=== PATIENT | female | born 1980 | race Asian ===

== ENCOUNTER 2016-02-25 15:59 | Inpatient (IN) | payer SELFPAY ==
[2016-02-25] MEDS ORDERED: ONDANSETRON 4 MG VIAL ONE (17:21)
[2016-02-25] MEDS ORDERED: MORPHINE 4 MG/ML SYR ONE (17:21)
[2016-02-25] MEDS ORDERED: SODIUM CHLORIDE 0.9% 1,000 ML ONE (17:21)
[2016-02-25] MEDS ORDERED: BISACODYL 10 MG SUPP RECTAL PRN (18:00)
[2016-02-25] MEDS ORDERED: MAG HYDROX 30 ML UDC PO PRN (18:00)
[2016-02-25] MEDS ORDERED: PROMETHAZINE 25 MG/ML VIAL IV PRN (18:00)
[2016-02-25] MEDS ORDERED: MORPHINE 4 MG/ML SYR IV PRN (18:00)
[2016-02-25] MEDS ORDERED: BISACODYL EC 5 MG TAB PO PRN (18:00)
[2016-02-25] MEDS ORDERED: SALINE FLUSH 10 ML FLUSH PRN (18:00)
[2016-02-25] MEDS ORDERED: ALU/MAG/SIM 30 ML UDC PO PRN (18:00)
[2016-02-25] MEDS ORDERED: SODIUM CHLORIDE 0.9% 1,000 ML IV SCH (18:00)
[2016-02-25] MEDS: SALINE FLUSH 10 ML FLUSH SCH (20:00)
[2016-02-25 20:54] VITALS: BP_SYST 112; BP_SYST 120; RESP 18; TEMP 101.5
[2016-02-25] MEDS: LEVOFLOXACIN 750 MG/150 ML 150 ML IV SCH (21:11)
[2016-02-25] MEDS: ACETAMINOPHEN 325 MG TAB PO PRN (21:18)
[2016-02-25 21:26] VITALS: Wt 61.8 kg
[2016-02-25] MEDS ORDERED: Flu Vaccine Quadrivalent 60 MCG/0.5 ML IM.VACC ONE (21:50)
[2016-02-25] MEDS: METRONIDAZOLE 500MG/100ML 100 ML IV SCH ×2 (22:01→23:50)
[2016-02-25 23:50] VITALS: BP_SYST 103; RESP 22; TEMP 97.4
[2016-02-25] MEDS: SODIUM CHLOR 0.9% W/KCL 20MEQ 1,000 ML IV SCH (23:50)
[2016-02-26] VITALS (7 sets, daily range): BP systolic 101–121; RESP 18–22; TEMP 98.4–101.2
[2016-02-26] MEDS: SODIUM CHLORIDE 0.9% FLUSH BAG 500 ML IV SCH ×2 (05:10→05:11)
[2016-02-26] MEDS: METRONIDAZOLE 500MG/100ML 100 ML IV SCH ×4 (06:52→23:37)
[2016-02-26] MEDS: LEVOFLOXACIN 750 MG/150 ML 150 ML IV SCH (10:23)
[2016-02-26] MEDS: ENOXAPARIN 40 MG/0.4 ML SYR SUBQ SCH (10:24)
[2016-02-26] MEDS: SALINE FLUSH 10 ML FLUSH SCH ×2 (10:36→21:28)
[2016-02-26] MEDS: PANTOPRAZOLE 40 MG VIAL IV SCH ×2 (11:54→21:27)
[2016-02-26] MEDS: ACETAMINOPHEN 325 MG TAB PO PRN ×2 (11:54→22:22)
[2016-02-26] MEDS: SACCHA BOULARDII 250MG CAP PO SCH ×3 (11:54→21:28)
[2016-02-26] MEDS: SODIUM CHLOR 0.9% W/KCL 20MEQ 1,000 ML IV SCH (11:56)
[2016-02-26] MEDS: MORPHINE 2 MG/ML SYR IV PRN (15:59)
[2016-02-27] VITALS (14 sets, daily range): BP systolic 97–130; RESP 18–28; TEMP 97.7–98.9
[2016-02-27] MEDS: SODIUM CHLOR 0.9% W/KCL 20MEQ 1,000 ML IV SCH ×2 (01:38→16:24)
[2016-02-27] MEDS: SODIUM CHLORIDE 0.9% FLUSH BAG 500 ML IV SCH ×2 (05:06)
[2016-02-27] MEDS: METRONIDAZOLE 500MG/100ML 100 ML IV SCH ×3 (05:20→18:05)
[2016-02-27] MEDS: PANTOPRAZOLE 40 MG VIAL IV SCH ×2 (08:33→20:47)
[2016-02-27] MEDS: LEVOFLOXACIN 750 MG/150 ML 150 ML IV SCH (08:33)
[2016-02-27] MEDS: SALINE FLUSH 10 ML FLUSH SCH ×2 (08:34→20:47)
[2016-02-27] MEDS: SACCHA BOULARDII 250MG CAP PO SCH ×3 (08:34→20:47)
[2016-02-27] MEDS: ENOXAPARIN 40 MG/0.4 ML SYR SUBQ SCH (09:00)
[2016-02-27] MEDS ORDERED: LACT RINGERS 1,000 ML IV SCH (13:00)
[2016-02-27] MEDS: METHYLPRED SOD SUCC 125 MG/2 ML VIAL IV SCH (18:05)
[2016-02-28] MEDS: METRONIDAZOLE 500MG/100ML 100 ML IV SCH ×5 (00:19→23:57)
[2016-02-28] MEDS: SODIUM CHLOR 0.9% W/KCL 20MEQ 1,000 ML IV SCH ×2 (03:03→16:08)
[2016-02-28 03:15] VITALS: BP_SYST 105; RESP 20; TEMP 98.4
[2016-02-28 07:20] VITALS: BP_SYST 101; RESP 20; TEMP 98
[2016-02-28] MEDS: SALINE FLUSH 10 ML FLUSH SCH ×2 (08:18→20:12)
[2016-02-28] MEDS: PANTOPRAZOLE 40 MG VIAL IV SCH ×2 (08:18→20:12)
[2016-02-28] MEDS: SACCHA BOULARDII 250MG CAP PO SCH ×3 (08:18→20:11)
[2016-02-28] MEDS: ENOXAPARIN 40 MG/0.4 ML SYR SUBQ SCH (08:19)
[2016-02-28] MEDS: LEVOFLOXACIN 750 MG/150 ML 150 ML IV SCH (08:19)
[2016-02-28] MEDS: METHYLPRED SOD SUCC 125 MG/2 ML VIAL IV SCH (08:19)
[2016-02-28] MEDS: ONDANSETRON 4 MG VIAL IV PRN ×2 (09:00→22:23)
[2016-02-28 11:28] VITALS: BP_SYST 100; RESP 18; TEMP 98.6
[2016-02-28 16:00] VITALS: BP_SYST 111; RESP 18; TEMP 97.5
[2016-02-28 19:25] VITALS: BP_SYST 98; RESP 18; TEMP 98
[2016-02-28 23:25] VITALS: BP_SYST 104; RESP 18; TEMP 98.3
[2016-02-29] MEDS: MORPHINE 2 MG/ML SYR IV PRN (00:25)
[2016-02-29] MEDS: SODIUM CHLOR 0.9% W/KCL 20MEQ 1,000 ML IV SCH ×2 (02:02→15:34)
[2016-02-29 03:07] VITALS: BP_SYST 90; RESP 18; TEMP 98
[2016-02-29] MEDS: METRONIDAZOLE 500MG/100ML 100 ML IV SCH ×3 (05:31→17:53)
[2016-02-29 07:28] VITALS: BP_SYST 92; RESP 18; TEMP 98.1
[2016-02-29] MEDS: SACCHA BOULARDII 250MG CAP PO SCH ×3 (08:13→20:27)
[2016-02-29] MEDS: PANTOPRAZOLE 40 MG VIAL IV SCH (08:13)
[2016-02-29] MEDS: METHYLPRED SOD SUCC 125 MG/2 ML VIAL IV SCH (08:14)
[2016-02-29] MEDS ORDERED: MISSING DOSE XX ONE (08:15)
[2016-02-29] MEDS: SALINE FLUSH 10 ML FLUSH SCH ×2 (08:15→20:00)
[2016-02-29] MEDS: ENOXAPARIN 40 MG/0.4 ML SYR SUBQ SCH (08:15)
[2016-02-29] MEDS: LEVOFLOXACIN 750 MG/150 ML 150 ML IV SCH (08:33)
[2016-02-29] MEDS: ONDANSETRON 4 MG VIAL IV PRN (09:35)
[2016-02-29 11:11] VITALS: BP_SYST 88; RESP 18; TEMP 98.4
[2016-02-29 15:29] VITALS: BP_SYST 105; RESP 18; TEMP 98
[2016-02-29 19:13] VITALS: BP_SYST 105; RESP 18; TEMP 97.4
[2016-02-29 22:28] VITALS: BP_SYST 97; RESP 18; TEMP 98.4
[2016-03-01] MEDS: MORPHINE 2 MG/ML SYR IV PRN ×2 (00:22→22:24)
[2016-03-01] MEDS: METRONIDAZOLE 500MG/100ML 100 ML IV SCH ×5 (00:22→23:26)
[2016-03-01] MEDS: SODIUM CHLOR 0.9% W/KCL 20MEQ 1,000 ML IV SCH ×2 (00:23→15:14)
[2016-03-01 04:58] VITALS: BP_SYST 96; RESP 18; TEMP 97.9
[2016-03-01 07:36] VITALS: BP_SYST 91; RESP 20; TEMP 98.1
[2016-03-01] MEDS: SALINE FLUSH 10 ML FLUSH SCH ×2 (08:00→19:05)
[2016-03-01] MEDS: METHYLPRED SOD SUCC 125 MG/2 ML VIAL IV SCH (08:22)
[2016-03-01] MEDS: SACCHA BOULARDII 250MG CAP PO SCH ×3 (08:22→20:20)
[2016-03-01] MEDS: ENOXAPARIN 40 MG/0.4 ML SYR SUBQ SCH (08:23)
[2016-03-01] MEDS: LEVOFLOXACIN 750 MG/150 ML 150 ML IV SCH (08:33)
[2016-03-01] MEDS ORDERED: PROPOFOL 50ML VIAL IV ONE (10:13)
[2016-03-01] MEDS ORDERED: LIDOCAINE 2% SYR 5 ML IV ONE (10:13)
[2016-03-01 11:21] VITALS: BP_SYST 97; RESP 20; TEMP 98.3
[2016-03-01 15:16] VITALS: BP_SYST 102; RESP 20; TEMP 98.1
[2016-03-01] MEDS: ONDANSETRON 4 MG VIAL IV PRN (16:18)
[2016-03-01 20:22] VITALS: BP_SYST 106; RESP 16; TEMP 98.4
[2016-03-02 00:03] VITALS: BP_SYST 98; RESP 16; TEMP 98.1
[2016-03-02 04:09] VITALS: BP_SYST 98; RESP 16; TEMP 98
[2016-03-02] MEDS: METRONIDAZOLE 500MG/100ML 100 ML IV SCH ×4 (05:56→23:50)
[2016-03-02 07:39] VITALS: BP_SYST 95; RESP 16; TEMP 98.1
[2016-03-02] MEDS: LEVOFLOXACIN 750 MG/150 ML 150 ML IV SCH (08:47)
[2016-03-02] MEDS: METHYLPRED SOD SUCC 125 MG/2 ML VIAL IV SCH (08:48)
[2016-03-02] MEDS: SALINE FLUSH 10 ML FLUSH SCH ×2 (08:48→20:00)
[2016-03-02] MEDS: SACCHA BOULARDII 250MG CAP PO SCH ×3 (08:48→20:27)
[2016-03-02 11:17] VITALS: BP_SYST 98; RESP 16; TEMP 97.6
[2016-03-02] MEDS: VANCOMYCIN SUSP 250 MG/5 ML UDC PO SCH ×3 (14:08→20:27)
[2016-03-02] MEDS ORDERED: MISSING DOSE XX ONE (17:10)
[2016-03-02] MEDS: SODIUM CHLOR 0.9% W/KCL 20MEQ 1,000 ML IV SCH ×2 (17:32→22:19)
[2016-03-02 20:22] VITALS: BP_SYST 101; RESP 16; TEMP 98.3
[2016-03-02 23:32] VITALS: BP_SYST 111; RESP 16; TEMP 98.2
[2016-03-03 03:22] VITALS: BP_SYST 98; RESP 16; TEMP 98.2
[2016-03-03] MEDS: METRONIDAZOLE 500MG/100ML 100 ML IV SCH ×2 (05:20→12:01)
[2016-03-03 07:25] VITALS: BP_SYST 108; RESP 16; TEMP 98.3
[2016-03-03] MEDS: METHYLPRED SOD SUCC 125 MG/2 ML VIAL IV SCH (08:25)
[2016-03-03] MEDS: SALINE FLUSH 10 ML FLUSH SCH ×2 (08:25→21:28)
[2016-03-03] MEDS: LEVOFLOXACIN 750 MG/150 ML 150 ML IV SCH (08:26)
[2016-03-03] MEDS: VANCOMYCIN SUSP 250 MG/5 ML UDC PO SCH ×4 (08:26→21:27)
[2016-03-03] MEDS: SACCHA BOULARDII 250MG CAP PO SCH ×3 (08:26→21:28)
[2016-03-03] MEDS: SODIUM CHLOR 0.9% W/KCL 20MEQ 1,000 ML IV SCH ×2 (08:33→19:54)
[2016-03-03 10:56] VITALS: BP_SYST 104; RESP 16; TEMP 97.4
[2016-03-03 16:58] VITALS: BP_SYST 105; RESP 16; TEMP 98.1
[2016-03-03 19:34] VITALS: BP_SYST 108; RESP 20; TEMP 98.3
[2016-03-03 23:49] VITALS: BP_SYST 101; RESP 20; TEMP 98.2
[2016-03-04 02:50] VITALS: BP_SYST 102; RESP 20; TEMP 97.7
[2016-03-04] MEDS: SODIUM CHLOR 0.9% W/KCL 20MEQ 1,000 ML IV SCH ×2 (04:21→18:48)
[2016-03-04] MEDS ORDERED: INFLIXIMAB IV ONE (07:00)
[2016-03-04] MEDS ORDERED: SODIUM CHLORIDE 0.9% IV ONE (07:00)
[2016-03-04 07:47] VITALS: BP_SYST 109; RESP 20; TEMP 97.6
[2016-03-04] MEDS: SALINE FLUSH 10 ML FLUSH SCH ×2 (08:00→20:00)
[2016-03-04] MEDS ORDERED: MISSING DOSE XX ONE (09:35)
[2016-03-04] MEDS: INFLIXIMAB IV ONE ×2 (10:00→10:34)
[2016-03-04] MEDS: SODIUM CHLORIDE 0.9% IV ONE ×2 (10:00→10:34)
[2016-03-04] MEDS: METHYLPRED SOD SUCC 125 MG/2 ML VIAL IV SCH (10:39)
[2016-03-04] MEDS: VANCOMYCIN SUSP 250 MG/5 ML UDC PO SCH ×4 (10:39→21:46)
[2016-03-04] MEDS: SACCHA BOULARDII 250MG CAP PO SCH ×3 (10:39→21:45)
[2016-03-04 11:00] VITALS: BP_SYST 106; RESP 20; TEMP 98.3
[2016-03-04 15:02] VITALS: BP_SYST 117; RESP 20; TEMP 97.7
[2016-03-04 19:39] VITALS: BP_SYST 118; RESP 20; TEMP 98.2
[2016-03-04 22:57] VITALS: BP_SYST 115; RESP 20; TEMP 98.3
[2016-03-05] MEDS: SODIUM CHLOR 0.9% W/KCL 20MEQ 1,000 ML IV SCH (03:22)
[2016-03-05 03:49] VITALS: BP_SYST 95; RESP 16; TEMP 97.9
[2016-03-05 07:31] VITALS: BP_SYST 101; RESP 18; TEMP 97.8
[2016-03-05] MEDS: SACCHA BOULARDII 250MG CAP PO SCH (09:45)
[2016-03-05] MEDS: VANCOMYCIN SUSP 250 MG/5 ML UDC PO SCH (09:45)
[2016-03-05] MEDS: METHYLPRED SOD SUCC 125 MG/2 ML VIAL IV SCH (09:45)
[2016-03-05] MEDS: SALINE FLUSH 10 ML FLUSH SCH (09:45)
[2016-03-05 11:31] VITALS: BP_SYST 101; RESP 18; TEMP 97.8
== END 2016-03-05 12:03 | disposition home or self-care (01) | DRG 386 ==
LOC: ENRESERVDT → ENRESERVTM → ER 15:59 → EMR 18:10 → ENPENDDIS 18:10 → 4NT 20:19
PROVIDERS: ADMIT Internal Medicine; ATTEND Internal Medicine
DX: K51.90 Ulcerative colitis, unspecified, without complications (principal); E87.1 Hypo-osmolality and hyponatremia; E87.6 Hypokalemia; E86.0 Dehydration
CPT/HCPCS: 36415; 71020; 80048; 80053; 80074; 81001; 82274; 82542; 83605; 83630; 83690; 84703; 85007; 85025; 85027; 85610; 85652; 85730; 86480; 87040; 87045; 87046; 87088; 87177; 87329; 87338; 87385; 87449; 87493; 87496; 87899; 88305; 94799; 96361; 96374; 96375; 99223; 99232; 99233; 99238